=== PATIENT | male | born 1945 | race Caucasian/White ===

== ENCOUNTER 2021-03-29 16:55 | Emergency (ER) | payer OTHER ==
[~2021-03-29] VITALS: Ht 185.4 cm; Wt 81.7 kg
[2021-03-29] MEDS ORDERED: LISINOPRIL10 MG PO (17:10)
[2021-03-29] MEDS ORDERED: HYDROCHLOROTHIA25 MG PO (17:10)
[2021-03-29] MEDS ORDERED: ASPIRIN81 MG PO (17:10)
[2021-03-29] MEDS ORDERED: SEROQUEL50 MG PO (17:27)
[2021-03-29] MEDS ORDERED: INVEGA SUS234 MG/1.5 IM (17:28)
--- OUTSIDE RECORDS SUMMARY | 2021-03-29 19:16 | XMS ---
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 Alfie has no Care Guidelines for this patient. Victorina VISIT COUNT (12 MO.) 1 LEATHA Jacobs TOTAL 1 NOTE: Visits indicate total known visits. ED/C VISIT TRACKING (12 MO.) 03/29/2021 16:56 LEATHA Cross [place] TYPE: Emergency COMPLAINT: - MEDICAL CLEARANCE INPATIENT VISIT TRACKING (12 MO.) No inpatient visits to display in this time frame [id number]
--- NOTE | 2021-03-30 12:13 | EKG ---
[facility] [address] [facility] [place], [place] [address] Signed Ventricular-paced rhythm Abnormal ECG No previous ECGs available Confirmed by MARY MERCER DO ([id number]) on 03/30/2021 12:13:44 PM Electronically Signed By: MARY MERCER DO 03/30/21 1213 PATIENT NAME: PATRICIA ALCANTAR Electrocardiogram DATE OF : 49 PHYSICIAN: MARY MERCER DO REPORT #: [id number] REPORT IS CONFIDENTIAL AND NOT TO BE RELEASED WITHOUT AUTHORIZATION
== END 2021-03-29 19:54 | disposition home or self-care (01) ==
LOC: ED 16:55
DX: Z04.6 Encounter for general psychiatric examination, requested by authority (principal); I10 Essential (primary) hypertension; F17.200 Nicotine dependence, unspecified, uncomplicated; Z88.8 Allergy status to other drugs, medicaments and biological substances; Z79.899 Other long term (current) drug therapy; Z79.82 Long term (current) use of aspirin; Z20.822 Contact with and (suspected) exposure to COVID-19
CPT/HCPCS: 80053; 81001; 84443; 85025; 93005; 93010; 99283-25; C9803; G0480; U0003